=== PATIENT | male | born 1955 | race American Indian/Alaskan Native ===

== ENCOUNTER 2021-01-21 14:10 | Emergency (ER) | payer SELFPAY ==
[2021-01-21] MEDS ORDERED: ZIPRASIDONE MESYLATE 20 MG VIAL IM ONE (14:21)
--- NOTE | 2021-01-21 18:38 | Emergency Department Report ---
ED General Adult HPI - General Chief complaint: Psych Stated complaint: MENTAL HEALTH Time Seen by Provider: 01/21/21 14:21 Source: EMS Mode of arrival: Stretcher Limitations: Altered Mental Status - History of Present Illness Initial comments: Patient presents to the emergency department via EMS. Per EMS the call was made by bystanders to 911 for concern of a man who was scooting down the road on his bottom. The patient presents with tangential speech and what appears to be response to internal stimuli. Patient is having delay in auditory halluc inations. Patient also has findings of tardive dyskinesia on initial evaluation. Due to the patient state he is not able to at to the history -: unknown Consistency: constant Improves with: none Worsens with: none Associated Symptoms: denies other symptoms Treatments Prior to Arrival: none ED Review of Systems ROS: Stated complaint: MENTAL HEALTH Other details as noted in HPI Comment: Unobtainable due to pts medical conditions (Not able to obtain a review of systems due to the patient's psychiatric mental status) ED Physical Exam - General General appearance: alert, other (Paranoid) - Head Head exam: Present: atraumatic, normocephalic - Eye Eye exam: Present: normal appearance, PERRL, EOMI - ENT ENT exam: Present: mucous membranes dry - Neck Neck exam: Present: normal inspection - Respiratory Respiratory exam: Present: normal lung sounds bilaterally. Absent: respiratory distress - Cardiovascular Cardiovascular Exam: Present: regular rate, normal rhythm - GI/Abdominal GI/Abdominal exam: Present: soft. Absent: distended, tenderness - Extremities Exam Extremities exam: Present: normal inspection - Neurological Exam Neurological exam: Present: alert, CN II-XII intact - Psychiatric Psychiatric exam: Present: other (Tardive dyskinesia movements on exam; patient is extremely paranoid and responding to what appears to be internal stimuli. Patient is having tangential speech.) - Skin Skin exam: Present: warm, dry ED Medical Decision Making - Medical Decision Making 1013 applied Awaiting mental health evaluation Awaiting laboratory results for medical clearance Critical care attestation.: If time is entered above; I have spent that time in minutes in the direct care of this critically ill patient, excluding procedure time. ED Disposition Clinical Impression: Paranoia, Hallucinations Disposition: [address] [place] [address] Is pt being admited?: No Does the pt Need Aspirin: No Condition: Stable Referrals: PRIMARY CARE, [Primary Care Provider] - 3-5 Days
[2021-01-21 23:51] LABS: Basophils # (Auto) 0.1 K/mm3 (0.0-0.1); Basophils % (Auto) 0.6 % (0.0-1.8); Eosinophils # (Auto) 0.4 K/mm3 (0.0-0.4); Eosinophils % (Auto) 3.7 % (0.0-4.3); Hematocrit 31.7 % (35.5-45.6); Hemoglobin 10.6 gm/dl (11.8-15.2); Lymphocytes # (Auto) 2.2 K/mm3 (1.2-5.4); Lymphocytes % (Auto) 20.2 % (13.4-35.0); Mean Corpuscular HGB Conc 34 % (32-34); Mean Corpuscular Volume 81 fl (84-94); Monocytes # (Auto) 1.2 K/mm3 (0.0-0.8); Monocytes % (Auto) 11.2 % (0.0-7.3); Platelet Count 212 K/mm3 (140-440); Red Blood Count 3.94 M/mm3 (3.65-5.03); Red Cell Distribution Width 17.1 % (13.2-15.2)
[2021-01-22 00:11] LABS: Alanine Aminotransferase 29 units/L (7-56); Albumin 3.5 g/dL (3.9-5); BUN/Creatinine Ratio 23; Blood Urea Nitrogen 18 mg/dL (9-20); Calcium 8.6 mg/dL (8.4-10.2); Hemolysis Index 5
[2021-01-22 00:49] LABS: Bilirubin,Urine NEG (Negative); Blood,Urine NEG (Negative); Color,Urine Yellow (Yellow); Mucus,Urine FEW /HPF; Protein,Urine <15 mg/dL mg/dL (Negative); RBC,Urine < 1.0 /HPF (0.0-6.0)
[2021-01-22 00:57] LABS: Amphetamine Screen,Urine Negative; Benzodiazepines Screen,Urine Negative; Cannabinoid Screen,Urine Negative; Cocaine Screen,Urine Negative; Methadone Screen,Urine Negative; Opiate Screen,Urine Negative
--- NOTE | 2021-01-22 12:08 | Consultation ---
History of Present Illness - Reason for Consult Consult date: 01/22/21 Reason for consult: Mental health disorder - History of Present Psychiatric Illness Per ED: Patient presents to the emergency department via EMS. Per EMS the call was made by bystanders to 911 for concern of a man who was scooting down the road on his bottom. The patient presents with tangential speech and what appears to be response to internal stimuli. Patient is having delay in auditory hallucinations. Patient also has findings of tardive dyskinesia on initial evaluation. Due to the patient state he is not able to at to the history. The patient was seen in seclusion. The patient is unable to answer questions, he presents with EPS- tardive dyskinesia. PAST PSYCHIATRIC HISTORY- Unable to assess PAST MEDICAL HISTORY: none reported Family Psychiatric History: None reported or documented SOCIAL HISTORY-Unable to assess REVIEW OF SYSTEMS-Unable to assess MENTAL STATUS EXAMINATION-Unable to assess Assessment and Plan - Psychiatric problem (1) Current Visit: Yes Status: Acute RECOMMENDATIONS continue 1013 Benadryl 50mg IM BID MEDICATIONS: Risks, benefits and alternatives of medications discussed with the patient, q uestions answered and consent obtained from patient. PSYCHOTHERAPY: Supportive psychotherapy provided MEDICAL: Per primary team DELIRIUM PRECAUTIONS: Please re-orient patient frequently, keep lights on during the day, and minimize benzodiazepines and opiates as these medications could worsen patient's confusion. 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 Thank you for the consult. Please contact with any questions and/or concerns. Medications and Allergies Medications and Allergies Allergies Allergy/AdvReac Type Severity Reaction Status Date / Time Unable to Assess Allergy Unverified 01/22/21 08:13 Mental Status Exam - Vital signs Last Vital Signs Temp 99.4 F 01/21/21 22:41 Pulse 60 01/21/21 22:41 Resp 18 01/22/21 02:19 BP 101/56 01/21/21 22:41 Pulse Ox 94 01/22/21 08:10 Results Result Diagrams: 01/21/21 23:16 01/21/21 23:16 Abnormal lab results 01/21/21 01/21/21 01/21/21 Range/Units 23:16 23:16 23:16 Hgb 10.6 L (11.8-15.2) gm/dl Hct 31.7 L (35.5-45.6) % MCV 81 L (84-94) fl MCH 27 L (28-32) pg RDW 17.1 H (13.2-15.2) % [place] % (Auto) 11.2 H (0.0-7.3) % [place] # (Auto) 1.2 H (0.0-0.8) K/mm3 Chloride (98-107) mmol/L AST (5-40) units/L Albumin (3.9-5) g/dL Salicylates < 0.3 L (2.8-20.0) mg/dL Acetaminophen 5.0 L (10.0-30.0) ug/mL 01/21/ Range/Units 23:16 Hgb (11.8-15.2) gm/dl Hct (35.5-45.6) % MCV (84-94) fl MCH (28-32) pg RDW (13.2-15.2) % [place] % (Auto) (0.0-7.3) % [place] # (Auto) (0.0-0.8) K/mm3 Chloride 107.9 H (98-107) mmol/L AST 50 H (5-40) units/L Albumin 3.5 L (3.9-5) g/dL Salicylates (2.8-20.0) mg/dL Acetaminophen (10.0-30.0) ug/mL All other labs normal.
[2021-01-22] MEDS: diphenhydrAMINE 50 MG/ML VIAL IV SCH ×2 (13:34→21:58)
--- NOTE | 2021-01-23 09:25 | Progress Note ---
Subjective - Reason for Consult Consult date: 01/23/21 Reason for consult: mental health evaluation - Chief Complaint Chief complaint: The patient is seen this morning, he continues to present with disorganized thought and flight of ideas. He is unable to participate in assessment. PAST PSYCHIATRIC HISTORY- Unable to assess PAST MEDICAL HISTORY: none reported Family Psychiatric History: None reported or documented SOCIAL HISTORY-Unable to assess REVIEW OF SYSTEMS-Unable to assess MENTAL STATUS EXAMINATION-Unable to assess Assessment and Plan - Psychiatric problem (1) Current Visit: Yes Status: Acute RECOMMENDATIONS continue 1013 Benadryl 50mg IM BID MEDICATIONS: Risks, benefits and alternatives of medications discussed with the patient, questions answered and consent obtained from patient. PSYCHOTHERAPY: Supportive psychotherapy provided MEDICAL: Per primary team DELIRIUM PRECAUTIONS: Please re-orient patient frequently, keep lights on during the day, and minimize benzodiazepines and opiates as these medications could worsen patient's confusion. 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 Thank you for the consult. Please contact with any questions and/or concerns. Medications and Allergies Mental Status Exam - Vital signs Last Vital Signs Temp 98.2 F 01/22/21 19:41 Pulse 89 01/22/21 19:41 Resp 18 01/22/21 19:41 BP 114/70 01/22/21 19:41 Pulse Ox 98 01/22/21 19:41
[2021-01-23] MEDS: diphenhydrAMINE 50 MG/ML VIAL IV SCH ×2 (10:19→22:40)
--- NOTE | 2021-01-23 11:29 | Event Note ---
Date: 01/23/21 S: Patient required seclusion last night for being verbally aggressive with staff. Patient refusing vitals no other events reported overnight O: Vitals refused A: Bizarre behavior PE: 1013, awaiting inpatient psych
[2021-01-24] MEDS: diphenhydrAMINE 50 MG/ML VIAL IV SCH ×2 (09:48→22:13)
--- NOTE | 2021-01-24 11:02 | Progress Note ---
Subjective - Reason for Consult Consult date: 01/24/21 Reason for consult: psychosis - Chief Complaint Chief complaint: The patient is seen this morning, he continues to present with disorganized thought and flight of ideas. He is unable to participate in assessment. PAST PSYCHIATRIC HISTORY- Unable to assess PAST MEDICAL HISTORY: none reported Family Psychiatric History: None reported or documented SOCIAL HISTORY-Unable to assess REVIEW OF SYSTEMS-Unable to assess MENTAL STATUS EXAMINATION-Unable to assess Assessment and Plan - Psychiatric problem (1) Current Visit: Yes Status: Acute RECOMMENDATIONS continue 1013 Benadryl 50mg IM BID Abilify 10mg po daily MEDICATIONS: Risks, benefits and alternatives of medications discussed with the patient, questions answered and consent obtained from patient. PSYCHOTHERAPY: Supportive psychotherapy provided MEDICAL: Per primary team DELIRIUM PRECAUTIONS: Please re-orient patient frequently, keep lights on during the day, and minimize benzodiazepines and opiates as these medications could worsen patient's confusion. FINANCIAL INTERN: Per medical team DISPOSITION: Recommends acute inpatient psychiatric hospitalization at this time LEGAL STATUS: continue 1013 FOLLOW-UP: Will follow. Thank you for the consult. Please contact with any questions and/or concerns. Medications and Allergies Mental Status Exam - Vital signs Last Vital Signs Temp 98.6 F 01/23/21 19:46 Pulse 99 H 01/23/21 19:46 Resp 18 01/23/21 19:46 BP 105/72 01/23/21 19:46 Pulse Ox 96 01/24/21 10:50
[2021-01-24] MEDS ORDERED: ARIPiprazole 10 MG TAB PO ONE (12:02)
--- NOTE | 2021-01-24 12:20 | Event Note ---
Date: 01/24/21 S: Patient refusing vitals. No other events reported overnight O: Vitals refused A: Bizarre behavior PE: 1013/awaiting patient sign
[2021-01-24] MEDS: diphenhydrAMINE 25 MG CAP PO SCH (22:13)
[2021-01-25] MEDS: diphenhydrAMINE 25 MG CAP PO SCH ×2 (09:58→23:59)
[2021-01-25] MEDS: diphenhydrAMINE 50 MG/ML VIAL IV SCH ×2 (09:58→23:59)
--- NOTE | 2021-01-25 11:21 | Progress Note ---
Subjective - Reason for Consult Consult date: 01/25/21 Reason for consult: psychosis - Chief Complaint Chief complaint: The patient is seen this morning. He is in the seclusion room. The patient is observed behind the glass. He is very psychotic and responding to internal stimuli. He is very jump and appears suspicious. He's looking around the room and the mullen and has his eyes bucked. He appears to not know where he is. He jumps about as if being startled and is talking to himself. REVIEW OF SYSTEMS-Unable to assess MENTAL STATUS EXAMINATION-Unable to assess Assessment and Plan Acute Psychosis Current Visit: Yes Status: Acute RECOMMENDATIONS continue [address] 125mg po BID Start Doxepin 10mg po qhs Increase Abilify 15mg po daily MEDICATIONS: Risks, benefits and alternatives of medications discussed with the patient, questions answered and consent obtained from patient. PSYCHOTHERAPY: Supportive psychotherapy provided MEDICAL: Per primary team DELIRIUM PRECAUTIONS: Please re-orient patient frequently, keep lights on during the day, and minimize benzodiazepines and opiates as these medications could worsen patient's confusion. 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 Thank you for the consult. Please contact with any questions and/or concerns. Mental Status Exam - Vital signs Last Vital Signs Temp 98.6 F 01/23/21 19:46 Pulse 99 H 01/23/21 19:46 Resp 18 01/24/21 23:05 BP 105/72 01/23/21 19:46 Pulse Ox 96 01/24/21 23:05
[2021-01-25] MEDS ORDERED: ARIPiprazole 15 MG TAB PO SCH (12:00)
--- NOTE | 2021-01-25 12:07 | Emergency Department Report ---
Blank Doc - Documentation Documentation: This patient presented on 01/21 for acute psychosis and was made a [address] aced on ED hold. He was seen by the psychiatric team multiple times, including today, and they continue to recommend inpatient stabilization. Labs have been reviewed and are unremarkable. The patient has been medically cleared. Vital signs have been reassuring including being afebrile. No events overnight or this morning but the patient continues to display acute psychosis. We will continue to monitor the patient during his ED course.
[2021-01-25] MEDS: DIVALPROEX DR 125 MG TAB PO SCH ×2 (13:27→23:59)
[2021-01-25] MEDS ORDERED: HALOPERIDOL LACTATE 5 MG/1 ML INJ IM ONE (13:32)
[2021-01-25] MEDS ORDERED: DOXEPIN 10 MG CAP PO SCH (22:00)
[2021-01-26 05:55] VITALS: BP 115/66
== END 2021-01-26 09:27 ==
LOC: EDBD → ED 14:10
DX: F22 Delusional disorders (principal); Z20.822 Contact with and (suspected) exposure to COVID-19
CPT/HCPCS: 36415; 80053; 80307; 81001; 84443; 85025; 96372; 96374; 99285; J1200; J1630; J3486; U0003; 80320; G0480